=== PATIENT | male | born 2000 | race African-American/Black ===

== ENCOUNTER 2021-12-22 19:39 | Emergency (ER) | payer OTHER ==
[2021-12-22] MEDS ORDERED: PROPARACAINE 0.5% OPHTH DROPS 15 ML RIGHTEYE STA (20:26)
--- NOTE | 2021-12-22 21:53 | ED Physician Documentation ---
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 He was not working with any chemicals or metal or any known substance. He says it was windy and just believes something flew into his eye. He has been having eye irritation since that time. Is difficult for him to open his eye due to the irritation. He does not wear glasses or contacts.He did try to irrigate at work for 1 minute with water with no improvement. Review of Systems Constitutional: denies: Fever Eyes: reports: Photophobia, Irritation Ears: denies: Drainage/discharge Nose: denies: Rhinorrhea / runny nose Throat: denies: Sore throat Cardiac: denies: Chest pain / pressure Respiratory: denies: Cough GI: denies: Abdominal Pain Skin: denies: Rash Neurologic: denies: Headache PD PAST MEDICAL HISTORY - Past Medical History Past Medical History: No - Past Surgical History Past Surgical History: No - Present Medications Home Medications: Ambulatory Orders Medication Instructions Recorded Confirmed No Known Home Medications 12/22/21 12/22/21 - Allergies Allergies/Adverse Reactions: Allergies Allergy/AdvReac Type Severity Reaction Status Date / Time No Known Drug Allergies Allergy Verified 12/22/21 19:48 - Social History Does the pt smoke?: No Smoking Status: Never smoker Does the pt drink ETOH?: No Does the pt have substance abuse?: No - Immunizations Immunizations are current?: Yes PD ED PE NORMAL - General General: Alert and oriented X 3, No acute distress, Well developed/nourished - HEENT HEENT: Atraumatic, PERRL, EOMI, Moist mucous membranes, Pharynx benign - Neck Neck: Supple, no meningeal sign - Respiratory Respiratory: No respiratory distress - Derm Derm: Normal color, No rash - Neuro Neuro: Normal speech - Psych Psych: Normal mood, Normal affect PD ED PE EXPANDED - Eyes Eyes: PERRL, EOMI, Eyelid embedded FB (Small black particle removed from inner right eyelid with long Q-tip), Anterior chambers clear. No: Eyelid injury, Eyelid swelling, Eyelid erythema, Corneal FB, Corneal abrasion, Corneal ulcer, Fluorescein uptake, Hyphema Results - Vitals Vitals: Vital Signs - 24 hr 12/22/21 12/22/21 19:45 21:53 Temperature 36.4 C L 36.5 C Heart Rate 56 L 60 Respiratory 14 15 Rate Blood Pressure 132/54 H 122/56 L O2 Saturation 100 100 Oxygen O2 Source Room air PD MEDICAL DECISION MAKING - ED course ED course: Patient with foreign body sensation to right eye. Visual acuity is intact. No corneal injury noted on exam.Small foreign body removed from inner right eyelid which resolved his symptoms.No signs of globe rupture. Departure - Departure Disposition: 01 Home, Self Care Clinical Impression: Foreign body in eye Qualifiers: Encounter type: initial encounter Laterality: right Qualified Code(s): T15.91XA - Foreign body on external eye, part unspecified, right eye, initial encounter Condition: Stable Instructions: ED Eye Particle Conjunctiva FB Rslv Comments: You had a small foreign body that was removed from the inner eyelid. Your symptoms should resolve. Consider wearing protective eyeglasses when working with any substances or particles. Please follow-up with PCM or radiologic electronic specialist as needed. Return to the emergency department if you develop changes to your vision, swelling, discharge or pain or with any concerns. Discharge Date/Time: 12/22/21 22:05
[2021-12-22 21:55] VITALS: BP 122/56
== END 2021-12-22 22:05 | disposition home or self-care (01) ==
LOC: ED 19:39
DX: T15.91XA Foreign body on external eye, part unspecified, right eye, initial encounter (principal); W45.8XXA Other foreign body or object entering through skin, initial encounter; Y93.89 Activity, other specified; Y92.89 Other specified places as the place of occurrence of the external cause; Y99.1 Military activity
CPT/HCPCS: 99282; J3490

== ENCOUNTER 2022-10-27 21:07 | Emergency (ER) | payer OTHER ==
[2022-10-27 21:18] VITALS: BP 140/80
--- NOTE | 2022-10-27 22:50 | ED Physician Documentation ---
History of Present Illness - Stated complaint Stated Complaint: NECK PX - Chief complaint Chief Complaint: Allergic Rx - History obtained from History obtained from: Patient - Additonal information Additional information: 22-year-old man presenting with burning skin in the shower after stopping triamcinolone cream which he has been using on his neck for the past 30 days. Denies other symptoms. Review of Systems Constitutional: denies: Fever Skin: reports: Other (irritation). denies: Rash, Lesions, Abrasion (s) PD PAST MEDICAL HISTORY - Past Surgical History Past Surgical History: No - Present Medications Home Medications: Ambulatory Orders Medication Instructions Recorded Confirmed No Known Home Medications 12/22/21 12/22/21 - Allergies Allergies/Adverse Reactions: Allergies Allergy/AdvReac Type Severity Reaction Status Date / Time No Known Drug Allergies Allergy Verified 10/27/22 21:13 - Social History Does the pt smoke?: No Smoking Status: Never smoker Does the pt drink ETOH?: No Does the pt have substance abuse?: No - Immunizations Immunizations are current?: Yes PD ED PE NORMAL - Vitals Vital signs reviewed: Yes - General General: Alert and oriented X 3, No acute distress, Well developed/nourished - HEENT HEENT: Atraumatic, PERRL, EOMI - Derm Derm: Normal color, Warm and dry, No rash Results - Vitals Vitals: Vital Signs - 24 hr 10/27/22 21:13 Temperature 36.5 C Heart Rate 67 Respiratory 16 Rate Blood Pressure 140/80 H O2 Saturation 100 Oxygen O2 Source Room air PD Medical Decision Making - ED course ED course: 22-year-old man presenting with burning pain in the neck that has now resolved After putting Aquaphor on it. Skin of the neck looks benign-with no signs of eczema flare or irritation. Discussed with patient that prolonged use of steroids can make skin more sensitive and lead to thinning of the skin. Skin care regimen discussed. Return precautions given. Plan to follow-up with primary care provider for referral to dermatology. Departure - Departure Instructions: Dermatitis Atopic Comments: You were seen in the ED for skin evaluation after stopping triamcinolone. Your skin can be more sensitive after prolonged use of steroid ointments and creams and will require extra care. Some recommended products include cera-ve healing ointment, cera-ve skin moisturizing cream, cera-ve cleansing soap. Other recommendations: eucerin cream, aphaphor, vaseline. Follow up with your primary care provider for referral to dermatology. Return to the ED if you have other concerns.
== END 2022-10-27 22:57 | disposition home or self-care (01) ==
LOC: ED 21:07
DX: L20.9 Atopic dermatitis, unspecified (principal)
CPT/HCPCS: 99281; 99283

== ENCOUNTER 2023-08-13 18:13 | Emergency (ER) | payer OTHER ==
[2023-08-13] MEDS ORDERED: ALBUTEROL NEB 2.5 MG/3 ML INH STA (19:09)
[2023-08-13] MEDS ORDERED: predniSONE 20 MG TABLET PO STA (19:09)
[2023-08-13] MEDS ORDERED: PANTOPRAZOLE 40 MG TABLET PO STA (19:10)
--- NOTE | 2023-08-13 19:11 | ED Physician Documentation ---
PD HPI DYSPNEA - Stated complaint Stated Complaint: WHEEZING - Chief complaint Chief Complaint: Resp - History obtained from History obtained from: Patient - Additional information Additional information: 23-year-old generally otherwise healthy gentleman presents with several months worth of wheezing especially bad over the last week. He particularly notices it at night. He was seen by his doctor in [place] [employer] and they thought it was probably due to stomach acid or allergies but no medications were trialed. No personal or family history of asthma. He does have a history remotely of bronch itis once. PD PAST MEDICAL HISTORY - Past Medical History Past Medical History: No - Past Surgical History Past Surgical History: No - Present Medications Home Medications: Ambulatory Orders Medication Instructions Recorded Confirmed Albuterol Sulf [Ventolin Hfa 1 - 2 puffs INH Q4HR PRN #1 each 08/13/23 Inhaler] Omeprazole 40 mg PO DAILY #30 cap 08/13/23 predniSONE [Deltasone] 60 mg PO DAILY 5 Days #15 tablet 08/13/23 - Allergies Allergies/Adverse Reactions: Allergies Allergy/AdvReac Type Severity Reaction Status Date / Time No Known Drug Allergies Allergy Verified 10/27/22 21:13 - Social History Does the pt smoke?: No Smoking Status: Never smoker Does the pt drink ETOH?: No Does the pt have substance abuse?: No - Immunizations Immunizations are current?: Yes PD ED PE NORMAL - Vitals Vital signs reviewed: Yes - General General: Alert and oriented X 3, No acute distress - HEENT HEENT: Pharynx benign - Neck Neck: Supple, no meningeal sign, No bony TTP - Cardiac Cardiac: RRR, No murmur - Respiratory Respiratory: No respiratory distress, Other (frequent cough, diffuse exp wheeze, nonfocal) - Abdomen Abdomen: Non tender - Neuro Neuro: Alert and oriented X 3, Normal speech Results - Vitals Vitals: Vital Signs - 24 hr 08/13/23 08/13/23 08/13/23 18:23 18:25 19:25 Temperature 37.1 C 37.1 C Heart Rate 70 70 73 Respiratory 20 20 18 Rate Blood Pressure 149/69 H 149/69 H O2 Saturation 99 99 08/13/23 08/13/23 19:29 19:55 Temperature Heart Rate 76 67 Respiratory 18 16 Rate Blood Pressure 152/89 H O2 Saturation 99 100 Oxygen O2 Source Room air - Rads (name of study) cxr 2v - hyperinflation Relevant Findings:: Final report received, EMP independent interpretation of test PD Medical Decision Making - ED course ED course: 23-year-old gentleman with what sounds like subacute wheezing now worse. It is worse at night so could be reflux versus more of a primary asthma component. Chest x-ray showing hyperinflation. After the administration of prednisone, Protonix, and an albuterol neb he was feeling much better and his lungs were clear. Departure - Departure Disposition: 01 Home, Self Care Clinical Impression: Wheezing Condition: Good Record reviewed to determine appropriate education?: Yes Instructions: ED Wheezing Prescriptions: Albuterol Sulf [Ventolin Hfa Inhaler] 1 - 2 puffs INH Q4HR PRN #1 each PRN Reason: Shortness Of Air/Wheezing predniSONE [Deltasone] 60 mg PO DAILY 5 Days #15 tablet Omeprazole 40 mg PO DAILY #30 cap Comments: Your chest x-ray showing will be called hyperinflation which is common when you are wheezing. And he seems to get a lot of relief from the albuterol nebulizer. This might be a manifestation of asthma versus we also worry about stomach acid causing the wheezing especially since you are symptoms are worse at night. I am prescribing you some steroids and a inhaler but also some stomach acid medication. You will only be on the steroids for a few days and if the wheezing returns, it probably is something like asthma but if the stomach acid medicine keeps it at bay then it might be the stomach acid itself. Call your doctor to arrange a follow-up appointment, make the next available appointment. In the interim, return anytime if worse or if new symptoms develop. Discharge Date/Time: 08/13/23 19:55
[2023-08-13 19:36] VITALS: BP 152/89
--- NOTE | 2023-08-13 19:43 | XRAY Report ---
PROCEDURE: Chest 2 View X-Ray INDICATIONS: Cough and wheezing TECHNIQUE: 2 views of the chest were acquired. COMPARISON: None. FINDINGS: Surgical changes and devices: None. Lungs and pleura: No pleural effusions or pneumothorax. Lungs are mildly hyperinflated but clear. Mediastinum: Mediastinal contours appear normal. Heart size is normal. Bones and chest wall: No suspicious bony lesions. Overlying soft tissues appear unremarkable. IMPRESSION: Mild pulmonary hyperinflation may indicate good inspiratory effort versus asthma/air trapping. Reviewed by: Catrachita Singh MD on 08/13/2023 7:42 PM PDT Approved by: Catrachita Singh MD on 08/13/2023 7:42 PM PDT Station ID: [id number]
[2023-08-13 20:10] VITALS: O2SAT 100
== END 2023-08-13 19:55 | disposition home or self-care (01) ==
LOC: ED 18:13
DX: R06.2 Wheezing (principal)
CPT/HCPCS: 71046; 94640; 94664; 99283; 99284; A9270; J7512